=== PATIENT | female | born 1940 | race Caucasian/White ===

== ENCOUNTER 2023-04-13 11:35 | Outpatient (CLI) | payer OTHER, SELFPAY ==
--- NOTE | 2023-04-13 12:44 | ECG_ITS ---
Measurements Intervals [place] Rate: 57 P: 7 ND: 150 QRS: -3 QRSD: 83 T: 37 QT: 405 QTc: 397 Interpretive Statements SINUS BRADYCARDIA LOW QRS VOLTAGE IN PRECORDIAL LEADS BORDERLINE T WAVE ABNORMALITY- ANTERIOR LEADS BASELINE ARTIFACT- I, II, III, AVR, AVL, AVF BORDERLINE ECG NO PREVIOUS ECG AVAILABLE FOR COMPARISON Electronically Signed On 04-13-2023 13:47:40 CDT by Tyler Esposito D.O.
[2023-04-13 13:15] LABS: Mean Corpuscular HGB Conc 32.6 g/dl (32-36); Mean Corpuscular Hemoglobin 29.1 pg (26-34); Mean Corpuscular Volume 89.4 fl (80-100); Mean Platelet Volume 10.3 fl (7.4-10.4); Platelet Count Result 456 k/mm3 (150-375); Red Blood Count 4.81 M/mm3 (4.2-5.4); Red Cell Distribution Width 13.2 % (11.5-14.5); White Blood Count 18.6 K/mm3 (4.5-10.0)
[2023-04-13 13:26] LABS: INR 0.9; Prothrombin Time 12.3 Seconds (11.1-14.7)
[2023-04-13 13:27] LABS: Partial Thromboplastin Time 24.9 SECONDS (22.3-36.8)
[2023-04-13 13:28] LABS: Anion Gap 5 mmol/L (8-16); Blood Urea Nitrogen 26 mg/dL (7-17); Calcium 9.4 mg/dL (8.4-10.2); Carbon Dioxide 30 mmol/L (22-30); Chloride 102 mmol/L (98-107); Estimated Glomerular Filt Rate > 60; Glucose 98 mg/dL (65-110); Potassium 4.3 mmol/L (3.4-5.0); Sodium 137 mmol/L (137-145)
[2023-04-13 13:43] LABS: Appearance Urine Clear (Clear); Bilirubin Urine Negative (Negative); Blood Urine Negative (Negative); Color Urine Yellow (Yellow); Glucose Urine UA Negative (Negative); Ketones Urine Negative (Negative); Leukocyte Esterase Ur 2+ LEU/UL (Negative); Nitrate Urine Negative (Negative); Protein Urine Negative (Negative); Specific Grav Ur 1.022 (1.001-1.035); pH Urine 5.5 (5.0-9.0)
[2023-04-13 14:04] LABS: Add Urine Microscopic? YES
[2023-04-13 14:15] LABS: Mucus Urine Present /lpf; RBC Urine 0-2 /hpf (0-2); Squamous Epithelial Cell Urine Many /hpf (Few); Transitional Epi Cells Urine Many /hpf; WBC Urine 51-100 /hpf (0-3)
[2023-04-13 14:16] LABS: Bacteria Urine 2+ /hpf
== END 2023-04-13 11:36 | disposition home or self-care (01) ==
LOC: ANHSURGERY 11:41
PROVIDERS: PCP Family Medicine; Visit Provider Neurological Surgery
DX: G95.9 Disease of spinal cord, unspecified (principal); I10 Essential (primary) hypertension; Z01.818 Encounter for other preprocedural examination; R94.31 Abnormal electrocardiogram [ECG] [EKG]
CPT/HCPCS: 36415; 80048; 81001; 85027; 85610; 85730; 86850; 86900; 86901; 87086; 93005

== ENCOUNTER 2023-04-19 11:24 | Outpatient (CLI) | payer OTHER, SELFPAY ==
[2023-04-19 12:12] LABS: Basophils Absolute Auto 0.1 K/mm3 (0.0-0.1); Basophils Percent Auto 0.6 % (0.2-1.2); Eosinophils Absolute Auto 0.2 K/mm3 (0-0.3); Eosinophils Percent Auto 1.7 % (0-4.4); Hematocrit 41.7 % (37.0-47.0); Hemoglobin 13.6 g/dL (12.0-15.0); Immature Granulocyte Absolute 0.06 K/mm3 (0.00-0.031); Immature Granulocyte Percent A 0.4 % (0-0.5); Lymphocytes Absolute Auto 3.53 K/mm3 (0.9-3.2); Lymphocytes Percent Auto 24.5 % (18.3-44.2); Mean Corpuscular HGB Conc 32.6 g/dl (32-36); Mean Corpuscular Hemoglobin 28.9 pg (26-34); Mean Corpuscular Volume 88.5 fl (80-100); Mean Platelet Volume 10.6 fl (7.4-10.4); Monocytes Absolute Auto 0.6 K/mm3 (0.1-0.6); Neutrophils Percent Auto 68.8 % (45.5-73.1); Platelet Count Result 392 k/mm3 (150-375); Red Blood Count 4.71 M/mm3 (4.2-5.4); White Blood Count 14.4 K/mm3 (4.5-10.0)
[2023-04-19 12:17] LABS: Appearance Urine Clear (Clear); Bacteria Urine Rare /hpf; Bilirubin Urine Negative (Negative); Blood Urine Negative (Negative); Color Urine Yellow (Yellow); Glucose Urine UA Negative (Negative); Ketones Urine Trace mg/dL (Negative); Leukocyte Esterase Ur 2+ LEU/UL (NEGATIVE); Nitrate Urine Negative (Negative); Non Pathogenic Casts 0-2; Protein Urine Negative (Negative); RBC Urine 0-2 /hpf (0-2); Specific Grav Ur 1.023 (1.001-1.035); Squamous Epithelial Cell Urine Occasional /hpf (Few); pH Urine 5.5 (5.0-9.0)
[2023-04-19 12:32] LABS: Add Urine Microscopic? YES
== END 2023-04-19 11:25 | disposition home or self-care (01) ==
PROVIDERS: PCP Family Medicine; Visit Provider Family Medicine
DX: D72.828 Other elevated white blood cell count (principal); R30.0 Dysuria
CPT/HCPCS: 36415; 81001; 85025; 87040

== ENCOUNTER 2023-05-04 08:57 | Outpatient (CLI) | payer OTHER, SELFPAY ==
[2023-05-04 10:04] LABS: White Blood Count 11.4 K/mm3 (4.5-10.0)
[2023-05-04 10:08] LABS: Appearance Urine Cloudy (Clear); Bacteria Urine 4+ /hpf; Bilirubin Urine Negative (Negative); Blood Urine Negative (Negative); Color Urine Yellow (Yellow); Glucose Urine UA Negative (Negative); Ketones Urine Negative (Negative); Leukocyte Esterase Ur 3+ LEU/UL (Negative); Nitrate Urine Negative (Negative); Non Pathogenic Casts 0-2; Protein Urine Trace mg/dL (Negative); RBC Urine 0-2 /hpf (0-2); Specific Grav Ur 1.021 (1.001-1.035); Squamous Epithelial Cell Urine Moderate /hpf (Few); WBC Urine 51-100 /hpf; pH Urine 5.5 (5.0-9.0)
[2023-05-04 10:22] LABS: Add Urine Microscopic? YES
== END 2023-05-04 08:58 | disposition home or self-care (01) ==
PROVIDERS: PCP Family Medicine; Visit Provider Neurological Surgery
DX: Z01.818 Encounter for other preprocedural examination (principal); G95.9 Disease of spinal cord, unspecified
CPT/HCPCS: 36415; 81001; 85048; 86850; 86900; 86901; 87086

== ENCOUNTER 2023-05-17 11:02 | Inpatient (IN) | payer OTHER, SELFPAY ==
--- NOTE | 2023-04-13 11:36 | PC.NURSE ---
PRE-OP INSTRUCTIONS, PLEASE READ CAREFULLY Report to the Outpatient Waiting Room, entrance under the green pavilion located off [facility], at time _0600_ on date _04/19/23_. Planned Procedure Time: _0730_. PACK A SMALL OVERNIGHT BAG AND LEAVE IN THE CAR Time changes happen often and if your time is changed the preop area will call you the afternoon before. - You and your visitor will be asked to self-screen and do not enter if you have any COVID symptoms. - A mask is optional within the hospital at this time. -VISITING HOURS 8AM-8PM Patients may have clear liquids (water, carbonated beverages, clear teas, apple juice) until 3 hours prior to surgery (0430 AM) with a maximum of 20 ounces. - No food from midnight until time of surgery Take the following medications with a SIP of water the morning of surgery: _NONE_ DO NOT STOP ANY OF YOUR OTHER PRESCRIPTION MEDICATIONS PRIOR TO SURGERY ?EXCEPT THE FOLLOWING Medications to discontinue - _NONE_, Date to take last dose Please no make-up, nail swiss, hairspray, perfume, deodorant, or body powder the day of surgery. No jewelry (including any body piercings) or valuables the day of surgery, leave them at home. Please take a shower or bath the night before, or the morning of, surgery with an antibacterial soap. Wear comfortable, loose fitting clothing. - Jewelry must be removed prior to entering the operating room. Rings and piercings that are not removed may be cut off. - The hospital will not accept responsibility for valuables. - Please leave all valuables, including medications, at home the day of surgery. If you are going home after surgery, a licensed motor coach driver must drive you home. - NO public transportation without another adult if you receive anesthesia. - We recommend that an adult stay with you for 24 hours following discharge. - We also recommend that you do not drive, make important decision, drink alcoholic beverages, or take any drugs that were not prescribed by your health care provider for at least 24 hours after your discharge time. Follow any additional instructions given to you from your surgeon. If you or anyone in your household have experienced Covid symptoms in the past week, please notify your surgeon or the nurse liaison at the phone number below for possible testing. Instructions given to _PATIENT & CAREGIVER (MOE)_and asked if any additional questions and then verbalized understanding. Patient advised to call surgeon office or pre surgery nurse liaison [phone] if any additional questions.
[2023-04-13 12:01] VITALS: BP 138/46; PULSE 62; RESP 18; TEMP 36.8; O2SAT 95; BMI 26.4
--- NOTE | 2023-05-02 09:15 | PC.NURSE ---
PRE-OP INSTRUCTIONS, PLEASE READ CAREFULLY Report to the Outpatient Waiting Room, entrance under the green pavilion located off [facility], at time _0600_ on date _05/10/23_. Planned Procedure Time _0730_. Time changes happen often and if your time is changed the preop area will call you the afternoon before. - You and your visitor will be asked to self-screen and do not enter if you have any COVID symptoms. - A mask is optional within the hospital at this time. -VISITING HOURS 8AM-8PM Patients may have clear liquids (water, carbonated beverages, clear teas, apple juice) until 3 hours prior to surgery (0430 AM) with a maximum of 20 ounces. - No food from midnight until time of surgery Take the following medications with a SIP of water the morning of surgery: _NONE_ DO NOT STOP ANY OF YOUR OTHER PRESCRIPTION MEDICATIONS PRIOR TO SURGERY ?EXCEPT THE FOLLOWING Medications to discontinue per physician __NONE____, Date to take last dose Please no make-up, nail bengali, hairspray, perfume, deodorant, or body powder the day of surgery. No jewelry (including any body piercings) or valuables the day of surgery, leave them at home. Please take a shower or bath the night before, or the morning of, surgery with an antibacterial soap. Wear comfortable, loose fitting clothing. - Jewelry must be removed prior to entering the operating room. Rings and piercings that are not removed may be cut off. - The hospital will not accept responsibility for valuables. - Please leave all valuables, including medications, at home the day of surgery. If you are going home after surgery, a licensed charter bus driver must drive you home. - NO public transportation without another adult if you receive anesthesia. - We recommend that an adult stay with you for 24 hours following discharge. - We also recommend that you do not drive, make important decision, drink alcoholic beverages, or take any drugs that were not prescribed by your health care provider for at least 24 hours after your discharge time. Follow any additional instructions given to you from your surgeon. If you or anyone in your household have experienced Covid symptoms in the past week, please notify your surgeon or the nurse liaison at the phone number below for possible testing. Telephone instructions given to _PT'S FRIEND MOE VALENZUELA_and asked if any additional questions and then verbalized understanding. Patient advised to call surgeon office or pre surgery nurse liaison [phone] if any additional questions.
--- NOTE | 2023-05-11 08:14 | PC.NURSE ---
Report to the Outpatient Waiting Room, entrance under the green pavilion located off [facility], at time __0600 on date __05/17/23 . Planned Procedure Time: ___729 . Time changes happen often and if your time is changed the preop area will call you the afternoon before. - You and your visitor will be asked to self-screen and do not enter if you have any COVID symptoms. - A mask is optional within the hospital at this time. Patients may have clear liquids (water, carbonated beverages, clear teas, apple juice) until 3 hours prior to surgery (0430 AM) with a maximum of 20 ounces. - No food from midnight until time of surgery - Infants may have breast milk until 4 hours before surgery, formula 6 hours prior to surgery. - Children will be allowed to drink immediately following surgery. If applicable, please bring a bottle or sippy cup to assist with drinking. Juice, water, soda, and popsicles are readily available. For infants on formula, please bring formula the day of surgery. Pacifiers are allowed. Take the following medications with a SIP of water the morning of surgery: NONE DO NOT STOP ANY OF YOUR OTHER PRESCRIPTION MEDICATIONS PRIOR TO SURGERY ?EXCEPT THE FOLLOWING Medications to discontinue per physician NONE Date to take last dose Please no make-up, nail welsh, hairspray, perfume, deodorant, or body powder the day of surgery. No jewelry (including any body piercings) or valuables the day of surgery, leave them at home. Please take a shower or bath the night before, or the morning of, surgery with an antibacterial soap. Wear comfortable, loose fitting clothing. Children are encouraged to wear pajamas. - Jewelry must be removed prior to entering the operating room. Rings and piercings that are not removed may be cut off. - The hospital will not accept responsibility for valuables. - Please leave all valuables, including medications, at home the day of surgery. If you are going home after surgery, a licensed oil transport driver must drive you home. - NO public transportation without another adult if you receive anesthesia. - We recommend that an adult stay with you for 24 hours following discharge. - We also recommend that you do not drive, make important decision, drink alcoholic beverages, or take any drugs that were not prescribed by your health care provider for at least 24 hours after your discharge time. For Pediatric surgeries, we recommend two adults accompany the child home. Follow any additional instructions given to you from your surgeon. If you or anyone in your household have experienced Covid symptoms in the past week, please notify your surgeon or the nurse liaison at the phone number below for possible testing. Telephone instructions given to _PT'S FRIEND MOE NORIEGAFamilia_and asked if any additional questions and then verbalized understanding. Patient advised to call surgeon office or pre surgery nurse liaison [phone] if any additional questions.
[2023-05-17] VITALS (15 sets, daily range): BP systolic 137–171; BP diastolic 41–78; PULSE 72–101; RESP 12–20; TEMP 36.6–36.8; O2SAT 93–100
--- NOTE | ~2023-05-17 | XR_ITS ---
EXAMINATION: XR fluoroscopy no charge DATE: 05/17/2023 10:12 INDICATION: Cervical decompression and C5-C7 spinal fusion TECHNIQUE: 2 fluoroscopic images of the cervical spine were obtained in the frontal and lateral proje ctions during procedure performed by Dr. Bravo. Radiologist was not present for the imaging or proc edure. The amount of fluoroscopy time used during this procedure was 0.2 minutes. COMPARISON: None. FINDINGS: C3, C4 and C5 laminectomies. Instrumented posterior spinal fusion with bilateral vertical osman and lat eral mass screw fixation at C3-C7. There is some expected lucent gas in the soft tissues at the opera tive bed. Endotracheal tube in expected position extending down the caudal margin of the [id number] at the thoracic inlet. IMPRESSION: 1. Fluoroscopy utilized during cervical posterior decompression and instrumented C3-C7 posterior spin al fusion. Reviewed, dictated and finalized at location A. IMPRESSION: 1. Fluoroscopy utilized during cervical posterior decompression and instrumente d C3-C7 posterior spinal fusion.
--- NOTE | 2023-05-17 07:02 | WPDANESEPPF ---
Anes - Initial Pre Proc Eval Procedure: Operation Date: 05/17/23 07:30 Proposed Procedures p Posterior Cervical Decompression and Fusion of C 3-7 - Theresa Bravo MD Date/Time: 05/17/23 07:02 Surgeon: Theresa Bravo MD Pre Op Diagnosis: cervical myelopathy Patient Data Age: 83 Gender: F Height: 1.61 m Weight: 68.7 kg Last Vital Signs Temp 36.8 C 04/13/23 12:01 Pulse 62 04/13/23 12:01 Resp 18 04/13/23 12:01 BP 138/46 L 04/13/23 12:01 Pulse Ox 95 04/13/23 12:01 O2 Del Method Room Air 04/13/23 12:01 Allergies Allergy/AdvReac Type Severity Reaction Status Date / Time No Known Allergies Allergy Unverified 04/13/23 12:04 Home Medications Medication Instructions Recorded Confirmed Type lisinopril 20 mg tablet 20 mg PO DAILY 03/30/23 04/13/23 History rosuvastatin 20 mg tablet 20 mg PO DAILY 03/30/23 04/13/23 History gabapentin 100 mg capsule 100 mg PO HS 04/13/23 04/13/23 History Patient hx anesthesia problems: none Family hx anesthesia problems: none Results Review: All pre-operative results and documents have been reviewed as part of the pre-operative evaluation. [facility] Past Medical History Medical History Anxiety Arthritis Hypertension Family History Family History (Updated 03/30/23 @ 10:44 by Antoinette Dozier MA) Father Hypertension Depression Cerebrovascular accident Sibling Hypertension Cerebrovascular accident Social History Social History Social History: Resources given to Staci for social determinants. Staci is very confident filling out medical forms. She is a white female. The date of her last physical exam was early 2022. She does not have an Advance Directive or Living Will. She denies being , but is sexually active. She does not experience menopausal symptoms. She does perform self breast exams. She denies having Flu Vaccine. She denies having Tetanus Vaccine. She denies having Pneumonia Vaccine. She has not had a Dexa scan. She has had an adults over 20 cholesterol test. She denies having an adults over 50 colonoscopy. She denies ever having a blood transfusion. She denies currently using recreational or street drugs. She denies ever giving herself street drugs with a needle. She reports eating a healthy diet and exercising regularly. She is over the age of 65 and reports frequent falls. She denies fearing for her safety or having a history of abuse. Her caffeine intake consists of 1 cup of coffee, cola, and tea per day. Smoking status: Never smoker Second hand tobacco smoke exposure: No Alcohol intake: current Alcohol use details: Occasionally drinks wine Substance use: never Substance use type: does not use Lack of Transportation: No Lack of Food: Sometimes True Current Housing: I Have Housing Concerned About Future Housing: Decline to Answer Difficulty Paying Gas/Electric Bills: YES Difficulty Paying for Meds: No Currently Unemployed: No Education: High School Diploma/GED Difficulty w/ Childcare or Family Care: No Living arrangements: alone Occupation/Education: retired Spiritual care concerns: No Agree to blood products: Yes Anes - Eval Final PreProcedure Day of Procedure 05/17/23 07:02 Patient weight: normal Heart: regular rate and rhythm Lungs: clear to auscultation Airway: Mallampati scale class III Neurological: other (alert hard of hearing) Last oral intake: >/= 8 hours ASA classification: III Emergent: no Anesthetic plan: proceed Anesthesia type and monitoring: general ETT and standard monitoring Results Review: All pre-operative results and documents have been reviewed as part of the pre-operative evaluation. surgeon aware of persistent leukocytosis desires to proceed. concern for MDS, leukemia, lymphoma with noted 18K+ white count. desires to proceed.
--- NOTE | 2023-05-17 07:11 | WPDHPUPDATE1 ---
History and Physical Update Update Date/Time: 05/17/23 07:11 History and Physical has been reviewed, including an updated exam of the patient. There are NO changes in the patient's condition. Risks, benefits, and alternatives have been discussed and questions answered. Patient agrees to proceed with procedure.
--- NOTE | 2023-05-17 07:11 | PM.IMHP ---
H&P: HPI History of Present Illness Date/Time: 05/17/23 07:11 Chief Complaint: cervical myelopathy Narrative: Ms. Jordan is an 83-year-old female with history of hypertension and hyperlipidemia who was urgently referred by [facility] for evaluation of cervical myelopathy.? For the last 3 years, patient has had progressive pain starting in her neck radiating bilaterally into her arms and hands.? She has numbness in both extremities, particularly in her hands.? 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 She has also had increasing difficulty with balance.? She reports being wobbly when she walks.? She is now using a cane for stability and uses a wheelchair for longer distances.? She feels numbness in her legs, worse on the left side.? Her symptoms have progressed particularly since October.? She had a course of physical therapy which was not helpful for her.? She saw [facility] for evaluation of epidural steroid injections in her lumbar spine due to lumbar stenosis.? They recognized that she was myelopathic and sent her here. She currently lives alone but is assisted by a neighbor who has accompanied her to clinic today.? She is otherwise healthy and does not take any blood thinners.? She does not smoke. [facility] Past Medical History Medical History Anxiety Arthritis Hypertension Family History Family History (Updated 03/30/23 @ 10:44 by Antoinette Dozier MA) Father Hypertension Depression Cerebrovascular accident Sibling Hypertension Cerebrovascular accident Social History Social History Social History: Resources given to Staci for social determinants. Staci is very confident filling out medical forms. She is a white female. The date of her last physical exam was early 2022. She does not have an Advance Directive or Living Will. She denies being , but is sexually active. She does not experience menopausal symptoms. She does perform self breast exams. She denies having Flu Vaccine. She denies having Tetanus Vaccine. She denies having Pneumonia Vaccine. She has not had a Dexa scan. She has had an adults over 20 cholesterol test. She denies having an adults over 50 colonoscopy. She denies ever having a blood transfusion. She denies currently using recreational or street drugs. She denies ever giving herself street drugs with a needle. She reports eating a healthy diet and exercising regularly. She is over the age of 65 and reports frequent falls. She denies fearing for her safety or having a history of abuse. Her caffeine intake consists of 1 cup of coffee, cola, and tea per day. Smoking status: Never smoker Second hand tobacco smoke exposure: No Alcohol intake: current Alcohol use details: Occasionally drinks wine Substance use: never Substance use type: does not use Lack of Transportation: No Lack of Food: Sometimes True Current Housing: I Have Housing Concerned About Future Housing: Decline to Answer Difficulty Paying Gas/Electric Bills: YES Difficulty Paying for Meds: No Currently Unemployed: No Education: High School Diploma/GED Difficulty w/ Childcare or Family Care: No Living arrangements: alone Occupation/Education: retired Spiritual care concerns: No Agree to blood products: Yes Meds Home Medications and Allergies Home Medications Medication Instructions Recorded Confirmed Type lisinopril 20 mg tablet 20 mg PO DAILY 03/30/23 04/13/23 History rosuvastatin 20 mg tablet 20 mg PO DAILY 03/30/23 04/13/23 History gabapentin 100 mg capsule 100 mg PO HS 04/13/23 04/13/23 History Allergies Allergy/AdvReac Type Severity Reaction Status Date / Time No Known Allergies Allergy Unverified 04/13/23 12:04 Exam Narrative: Positive Rm's on right Hand 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
[2023-05-17] MEDS: ceFAZolin 2 GM/D5W 50 ML 2 GM/50 ML BAG IVPB ×2 (07:42→11:44)
[2023-05-17] MEDS: BUPIVACAINE/EPINEPHRINE 0.25% 50 ML VIAL 20 ML INFILTRATE (09:00)
--- NOTE | 2023-05-17 10:52 | PM.OP ---
Procedure Note - Brief Procedure Note - Brief Date of procedure: 05/17/23 cervical myelopathy Post-op diagnosis: Same Procedure performed: Posterior cervical laminectomies C3-6, posterior cervical arthrodesis C3-7 Surgeon: Theresa Bravo MD Anesthesia: GETA Findings: Successful decompression C3-6. A very small amount of the superior portion of C7 lamina was removed to ensure the PLL was fully removed at C6-7. C3-7 lateral mass instrumentation with arthrodesis Estimated blood loss (mL): 100 Drains: Yes Packing: No Pathology: None sent Complications: None Condition: Stable Disposition: PACU
[2023-05-17] MEDS: LACTATED RINGERS 1,000 ML 30 ML IV CONT ×2 (10:56)
[2023-05-17] MEDS: fentaNYL CITRATE INJ (*CRX) 100 MCG/2 ML VIAL 25 MCG IV PUSH ×4 (11:14→11:52)
--- NOTE | 2023-05-17 12:15 | ADMGEN ---
This patient, Janee Jordan, was admitted to Medical Room 257-01. Patient/family oriented to hospital policies and general routines including ID bracelet, bed and alarms, visiting hours, pain management, procedures, bathroom and other care routines, personal items, smoking policy, room service/diet, and visiting hours. Information on how to activate the Rapid Response Team has been discussed. Patient/Family are encouraged to report perceived risks to care and to ask questions if they do not understand what they are told or what they should do.
[2023-05-17] MEDS: ACETAMINOPHEN 500 MG TABLET 1000 MG PO ×2 (12:40→17:19)
[2023-05-17] MEDS: oxyCODONE HCL (*CRX) 5 MG TAB IR 10 MG PO ×3 (12:40→22:16)
[2023-05-17] MEDS: SODIUM CHLORIDE 0.9% IV 1,000 ML 100 ML IV CONT (12:41)
--- NOTE | 2023-05-17 14:02 | PCPTNOTE ---
Attempted PT evaluation, per RN pt is rest comfortably at this time and to check back later. Will Follow.
--- NOTE | 2023-05-17 14:40 | PCPTNOTE ---
Attempted PT evaluation, pt refused due to pain. Pt adamant about not participating in skilled therapy this date.
[2023-05-17] MEDS: MORPHINE SULFATE (*CRX) 2 MG/ML INJ IV PUSH ×2 (15:06→20:23)
[2023-05-17] MEDS: CYCLOBENZAPRINE HCL 10 MG TABLET PO (15:07)
--- NOTE | 2023-05-17 15:10 | PCOTNOTE ---
Attempted to see pt. for occupational therapy evaluation. Pt. declines to participate at this time due to pain. Nursing aware. Following
--- NOTE | 2023-05-17 17:41 | W.PM.PROC2 ---
Procedure Note - Detailed Date of Procedure 05/17/23 Pre-op Diagnosis 1. Cervical myelopathy 2. Cervical spinal stenosis Post-op Diagnosis Same Procedure Performed 1. C3, C4, C5, and C6 laminectomies 2. Lateral mass instrumentation at C3, C4, C5, C6, and C7 3. Arthrodesis with autograft and allograft at C3-4, C4-5, C5-6, and C6-7 4. Use of C-arm for fluoroscopy Surgeon Theresa Bravo MD Metal Storage Worker RADHA Shabazz Anesthesia General and Local Indications Ms. Jordan is an 83-year-old female who presents with 3 years of progressive neck pain radiating into both arms, numbness throughout the arms and hands, hand weakness, balance issues,? numbness in her legs, and difficulty walking.? She was found to be subjectively and objectively myelopathic with weakness particularly in her hands, worse on the left side.? MRI cervical spine shows profound stenosis at C3-4 with cord signal change at this level.? There is also severe stenosis at C 4-5 and C5-6.? I recommended surgical intervention in the form of posterior cervical decompression and fusion C3-C7.?? Description of Procedure The patient was brought to the operating room where endotracheal anesthesia was induced. The Valerio headholder was applied, and the patient was transferred to the operating table in the prone position. The head was secured to the bed. All pressure points were padded. The C-arm was used to evaluate the planned incision. The planned surgical site was prepped and draped in usual sterile fashion. Time out was conducted, and local anesthesia was injected. A 10-blade scalpel was used to make the incision. The subcutaneous tissue was dissected with the bovie until the spinous processes were encountered. Self-retaining retractors were placed. A clamp was placed on a spinous process which was confirmed to be the C3 level with the C-arm. The incision was extended inferiorly to better expose down to the inferior level. The muscles were elevated in a subperiosteal fashion to expose the laminae and lateral masses of C3 through C6 bilaterally. The facet joints were exposed and defined with the bovie, and the spray pilot holes for the lateral mass screws were created with the high -seed drill. On the right side, the hand drill was used to drill through the lateral mass to a depth of 12mm at C3. The trajectory was palpated with a ball-tip probe to ensure where were no breaches in the bone. The drill was then lengthened to 14mm. The 3.0mm tap was then passes. This was repeated at C4, C5, C6, and C7. At C4 on the right, a breach was noted after drilling to 14m. Bone wax was placed over the screw holes. This was then repeated on the left side at C3, C4, C5, C6, and C7. No bone breaches were noted at the depth of 14mm. We then turned our attention to the laminectomies. The high-speed drill was used to create a trough through the laminae of C3, C4, C5, and C6. The posterior elements were elevated with a Leksell and Kerrison rongeurs, and the bone was passed off to be morselized for autograft. The ligamentum flavum was elevated with the bone. Small residual pieces of ligamentum and bone were removed with the kerrison. The facet joints were decorticated with the drill. We ensured hemostasis with the bipolar and Floseal. We next turned our attention to the lateral mass screws. The screw trajectories were palpated again with the balltip probe. 14 x 33.5mm screws were placed at each level bilaterally with exception of the right C4 lateral mass where a 12mm screw was placed. 70mm rods were placed followed by set screws which were final tightened. The area was copiously irrigated. Autograft mixed with i-Factor was placed lateral to the screws bilaterally and into the facets. A hemovac drain was placed in the epidural space and tunneled inferiorly. The muscle was approximated with 0 vicryl. The fascia was closed with 0 vicryl as well. The dermis was closed with 2-0 and 3-0 vicryl. The skin was closed with running 3-0 nylon. The drain
[2023-05-17] MEDS: GABAPENTIN 100 MG CAPSULE PO (20:36)
[2023-05-17] MEDS: DOCUSATE SODIUM 100 MG CAPSULE PO (20:36)
[2023-05-17] MEDS: ceFAZolin 1 GM/NS 50 ML 1 GM/50 ML BAG IVPB (22:50)
[2023-05-18] VITALS (9 sets, daily range): BP systolic 136–167; BP diastolic 45–82; PULSE 60–82; RESP 16–18; TEMP 36.4–36.6; O2SAT 93–99
[2023-05-18] MEDS: ACETAMINOPHEN 500 MG TABLET 1000 MG PO ×5 (00:43→23:43)
[2023-05-18] MEDS: MORPHINE SULFATE (*CRX) 2 MG/ML INJ IV PUSH ×2 (00:43→07:29)
[2023-05-18] MEDS: SODIUM CHLORIDE 0.9% IV 1,000 ML 30 ML IV CONT (01:58)
--- NOTE | 2023-05-18 02:01 | PC.NURSE ---
New bag of maintenance fluids set to run at 30 mL/hr per order in MAR that states if pt tolerating oral intake rate can be decreased to KVO rate.
[2023-05-18] MEDS: oxyCODONE HCL (*CRX) 5 MG TAB IR 10 MG PO ×4 (03:54→20:19)
[2023-05-18] MEDS: ceFAZolin 1 GM/NS 50 ML 1 GM/50 ML BAG IVPB ×3 (05:28→21:58)
[2023-05-18] MEDS: DOCUSATE SODIUM 100 MG CAPSULE PO ×2 (07:26→20:19)
[2023-05-18] MEDS: CYCLOBENZAPRINE HCL 10 MG TABLET PO ×2 (07:26→15:31)
[2023-05-18] MEDS: lisinopriL 20 MG TABLET PO (07:26)
[2023-05-18] MEDS: ROSUVASTATIN 10 MG TABLET 20 MG PO (07:28)
--- NOTE | 2023-05-18 11:20 | WPDANESPN ---
Anes - Prog Note Post-Op Date/Time: 05/18/23 11:20 Cardiovascular status: normal Respiratory status: normal Airway patency: baseline Mental status: baseline Post-Op hydration status: normal Vital Signs: Last Vital Signs Temp 97.6 F 05/18/23 10:53 Pulse 80 05/18/23 10:53 Resp 16 05/18/23 10:53 BP 143/52 H 05/18/23 10:53 Pulse Ox 96 05/18/23 10:53 O2 Del Method Room Air 05/18/23 10:42 O2 Flow Rate 2 05/18/23 08:00 Pain Score (VAS): 3 I/O: Intake & Output 05/17/23 05/18/23 05/18/23 23:59 07:59 15:59 Intake Total 1290 300 240 Output Total 400 20 Balance 890 280 240 Post-procedural complaints: nausea Patient Feedback: Patient satisfied with anesthetic care.
--- NOTE | 2023-05-18 17:45 | WPDNEUROSGPN ---
Progress Note: A&P Assessment and Plan (1) Cervical myelopathy: Code(s): G95.9 - Disease of spinal cord, unspecified Status: Acute (2) Status post cervical arthrodesis: Code(s): Z98.1 - Arthrodesis status Status: Acute Plan Ms. Jordan is an 83-year-old female with history of cervical myelopathy who underwent C3-6 decompression, C3-7 arthrodesis on 05/17. Her pain is better controlled today. She seems to have improved strength and sensation in her arms. I have reassured her that her recovery is going well and that the pain she is experiencing is unfortunately an expected part of this procedure but that it will improve fairly quickly. I have encouraged her to work with therapy. It sounds like they are in fact recommending some rehab. I will stop the IV morphine and will likely decrease the frequency of her narcotics tomorrow. I will also start DVT ppx tomorrow. Subjective Date/time seen: 05/18/23 17:45 Interval history: Ms. Jordan is feeling more comfortable today compared to yesterday in terms of neck pain. Currently no pain with lying still in bed. She thinks her hands feel stronger and have more sensation compared to before surgery. She ambulated with physical therapy. She is having some urinary retention that may require straight cath this evening. Review of Systems Review of Systems: All systems reviewed & are unremarkable except as noted in HPI and below Exam Narrative: Mildly confused but is answering questions appropriately Hand external auditor are nearly full strength Intrinsics 3/5 bilaterally, although she was having difficulty understanding the command Arms and legs otherwise full strength Sensation intact to light touch Incision dressing dry Objective Data Vital Signs Vital Signs: Vital Signs - 24 hr 05/17/23 18:10 05/17/23 22:01 05/17/23 20:25 Temperature 98 F 98.0 F Pulse Rate 73 91 Respiratory Rate 16 18 Blood Pressure 157/60 H 155/70 H Pulse Oximetry 99 98 98 Oxygen Delivery Nasal Cannula Oxygen Flow Rate 2 05/18/23 02:01 05/18/23 06:01 05/18/23 08:00 Temperature 97.8 F 97.7 F Pulse Rate 60 71 Respiratory Rate 17 17 Blood Pressure 167/64 H 141/50 H Pulse Oximetry 98 98 98 Oxygen Delivery Nasal Cannula Oxygen Flow Rate 2 05/18/23 09:57 05/18/23 10:42 05/18/23 10:53 Temperature 97.6 F Pulse Rate 80 Respiratory Rate 16 Blood Pressure 143/52 H Pulse Oximetry 93 96 Oxygen Delivery Room Air Room Air Oxygen Flow Rate 05/18/23 14:02 Temperature 97.6 F Pulse Rate 82 Respiratory Rate 16 Blood Pressure 137/62 Pulse Oximetry 97 Oxygen Delivery Oxygen Flow Rate Intake/Output Intake/Output: Intake & Output 05/15/23 05/16/23 05/17/23 05/18/23 23:59 23:59 23:59 23:59 Intake Total 1840 830 Output Total 400 20 Balance 1440 810 Meds/Results Medications: Active Medications Generic Name Dose Route Start Last Admin Trade Name Freq PRN Reason Stop Dose Admin Acetaminophen 1,000 mg 05/17/23 12:30 05/18/23 12:12 Acetaminophen 500 Mg Tablet PO 1,000 mg Q6HR NAVDEEP Administration Al Hydrox/Mg Hydrox/Simethicone 20 ml 05/17/23 11:02 Mag Hydrox/Al Hydrox/Simeth 30 Ml Udc PO Q4H PRN Indigestion/Heartburn Bisacodyl 10 mg 05/17/23 11:02 Bisacodyl 10 Mg Suppository RECTAL DAILY PRN Constipation Cyclobenzaprine HCl 10 mg 05/17/23 11:02 05/18/23 15:31 Cyclobenzaprine Hcl 10 Mg Tablet PO 10 mg TID PRN Administration Muscle Spasms Docusate Sodium 100 mg 05/17/23 21:00 05/18/23 07:26 Docusate Sodium 100 Mg Capsule PO 100 mg Q12HR NAVDEEP Administration Gabapentin 100 mg 05/17/23 21:00 05/17/23 20:36 Gabapentin 100 Mg Capsule PO 100 mg HS NAVDEEP Administration Sodium Chloride 1,000 mls @ 100 mls/hr 05/17/23 11:05 05/18/23 01:58 Normal Saline Iv IV CONT 30 mls/hr .Q10H NAVDEEP Administration Cefazolin Sodium 1 gm in 50 mls @ 100 mls/hr 05/17/23 22:25
[2023-05-18] MEDS: GABAPENTIN 100 MG CAPSULE PO (20:19)
[2023-05-19 05:09] LABS: Estimated CRCL calculation 35 ml/min; Estimated Glomerular Filt Rate 60
[2023-05-19] MEDS: ceFAZolin 1 GM/NS 50 ML 1 GM/50 ML BAG IVPB ×3 (06:12→21:52)
[2023-05-19] MEDS: ACETAMINOPHEN 500 MG TABLET 1000 MG PO ×3 (06:12→17:15)
[2023-05-19 06:39] VITALS: BP 132/43; PULSE 96; RESP 16; TEMP 36.6; O2SAT 91
[2023-05-19 08:00] VITALS: O2SAT 93
--- NOTE | 2023-05-19 08:14 | PCPTNOTE ---
Attempted to see patient for PT, however patient was eating breakfast.
[2023-05-19] MEDS: DOCUSATE SODIUM 100 MG CAPSULE PO ×2 (08:20→20:11)
[2023-05-19] MEDS: CYCLOBENZAPRINE HCL 10 MG TABLET PO (08:20)
[2023-05-19] MEDS: ROSUVASTATIN 10 MG TABLET 20 MG PO (08:20)
[2023-05-19] MEDS: lisinopriL 20 MG TABLET PO (08:20)
[2023-05-19] MEDS: ENOXAPARIN 30 MG/0.3 ML SYRINGE SUB-Q (08:20)
[2023-05-19] MEDS: oxyCODONE HCL (*CRX) 5 MG TAB IR 10 MG PO (09:15)
--- NOTE | 2023-05-19 09:45 | WPDNEUROSGPN ---
Progress Note: A&P Assessment and Plan (1) Status post cervical arthrodesis: Code(s): Z98.1 - Arthrodesis status Status: Acute (2) Spondylolisthesis, cervical region: Code(s): M43.12 - Spondylolisthesis, cervical region Status: Acute (3) Cervical stenosis of spinal canal: Code(s): M48.02 - Spinal stenosis, cervical region Status: Acute (4) Cervical myelopathy: Code(s): G95.9 - Disease of spinal cord, unspecified Status: Acute Plan Ms. Jordan is an 83-year-old female with history of cervical myelopathy who underwent posterior cervical laminectomies C3-6 and posterior cervical arthrodesis C3-7 on May 17. She is overall doing well with improved pain control. She is mobilizing with therapy who is currently recommending SNF placement. Plan: -Start DVT ppx today -Patient may shower today and get incision wet with soap and water -She may wear the cervical collar when ambulating -Ready for discharge to SNF when accepted Subjective Date/time seen: 05/19/23 09:45 Interval history: She reports doing very well overnight. Some soreness in her neck but no significant pain this morning. 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, slightly weaker on left Otherwise full strength Sensation intact to light touch Incision c/d/i with sutures intact Objective Data Vital Signs Vital Signs: Vital Signs - 24 hr 05/18/23 09:57 05/18/23 10:42 05/18/23 10:53 Temperature 97.6 F Pulse Rate 80 Respiratory Rate 16 Blood Pressure 143/52 H Pulse Oximetry 93 96 Oxygen Delivery Room Air Room Air 05/18/23 14:02 05/18/23 18:25 05/18/23 20:19 Temperature 97.6 F 98 F 97.8 F Pulse Rate 82 74 78 Respiratory Rate 16 18 16 Blood Pressure 137/62 147/82 H 136/45 L Pulse Oximetry 97 99 95 Oxygen Delivery 05/18/23 20:00 05/19/23 06:39 05/19/23 08:00 Temperature 97.8 F Pulse Rate 78 96 Respiratory Rate 16 16 Blood Pressure 132/43 L Pulse Oximetry 95 91 93 Oxygen Delivery Room Air Room Air Intake/Output Intake/Output: Intake & Output 05/16/23 05/17/23 05/18/23 05/19/23 23:59 23:59 23:59 23:59 Intake Total 1840 1570 440 Output Total 400 120 500 Balance 1440 1450 -60 Meds/Results Medications: Active Medications Generic Name Dose Route Start Last Admin Trade Name Freq PRN Reason Stop Dose Admin Acetaminophen 1,000 mg 05/17/23 12:30 05/19/23 06:12 Acetaminophen 500 Mg Tablet PO 1,000 mg Q6HR NAVDEEP Administration Al Hydrox/Mg Hydrox/Simethicone 20 ml 05/17/23 11:02 Mag Hydrox/Al Hydrox/Simeth 30 Ml Udc PO Q4H PRN Indigestion/Heartburn Bisacodyl 10 mg 05/17/23 11:02 Bisacodyl 10 Mg Suppository RECTAL DAILY PRN Constipation Cyclobenzaprine HCl 10 mg 05/17/23 11:02 05/19/23 08:20 Cyclobenzaprine Hcl 10 Mg Tablet PO 10 mg TID PRN Administration Muscle Spasms Docusate Sodium 100 mg 05/17/23 21:00 05/19/23 08:20 Docusate Sodium 100 Mg Capsule PO 100 mg Q12HR NAVDEEP Administration Enoxaparin Sodium 30 mg 05/19/23 09:00 05/19/23 08:20 Enoxaparin 30 Mg/0.3 Ml Syringe SUB-Q 30 mg DAILY NAVDEEP Administration Gabapentin 100 mg 05/17/23 21:00 05/18/23 20:19 Gabapentin 100 Mg Capsule PO 100 mg HS NAVDEEP Administration Sodium Chloride 1,000 mls @ 100 mls/hr 05/17/23 11:05 05/18/23 01:58 Normal Saline Iv IV CONT 30 mls/hr .Q10H NAVDEEP Administration Cefazolin Sodium 1 gm in 50 mls @ 100 mls/hr 05/17/23 22:25 05/19/23 06:48 Ancef 1 Gm/Ns 50 Ml IVPB Infused Q8HR NAVDEEP Infusion Lisinopril 20 mg 05/18/23 09:00 05/19/23 08:20 Lisinopril 20 Mg Tablet PO 20 mg DAILY NAVDEEP Administration Ondansetron HCl 4 mg 05/17/23 11:02 Ondansetron Inj 4 Mg/2 Ml Vial IV PUSH Q8H PRN Nausea And
[2023-05-19] MEDS: SODIUM CHLORIDE 0.9% IV 1,000 ML 30 ML IV CONT (13:55)
[2023-05-19 14:55] VITALS: BP 124/45; PULSE 87; RESP 18; TEMP 36.8; O2SAT 90
[2023-05-19 20:00] VITALS: PULSE 87; RESP 18; O2SAT 90
[2023-05-19] MEDS: oxyCODONE HCL (*CRX) 5 MG TAB IR PO (20:11)
[2023-05-19] MEDS: GABAPENTIN 100 MG CAPSULE PO (20:11)
[2023-05-19] MEDS: ONDANSETRON INJ 4 MG/2 ML VIAL IV PUSH (22:54)
[2023-05-19 23:03] VITALS: BP 134/46; PULSE 86; RESP 16; TEMP 36.7; O2SAT 95
[2023-05-20] MEDS: ceFAZolin 1 GM/NS 50 ML 1 GM/50 ML BAG IVPB (05:58)
[2023-05-20 07:00] VITALS: BP 142/55; PULSE 94; RESP 16; TEMP 36.4; O2SAT 93
[2023-05-20] MEDS: DOCUSATE SODIUM 100 MG CAPSULE PO (08:01)
[2023-05-20] MEDS: ENOXAPARIN 30 MG/0.3 ML SYRINGE SUB-Q (08:01)
[2023-05-20 08:02] VITALS: RESP 16; O2SAT 94
[2023-05-20] MEDS: ROSUVASTATIN 10 MG TABLET 20 MG PO (08:02)
[2023-05-20] MEDS: lisinopriL 20 MG TABLET PO (08:02)
--- NOTE | 2023-05-20 08:48 | PM.DS ---
DS: Admitting Diagnosis Discharge Date May 20, 2023 Admitting Diagnosis Cervical myelopathy Cervica stenosis DS: Discharge Diagnosis Discharge Diagnosis (1) Status post cervical arthrodesis: Code(s): Z98.1 - Arthrodesis status Status: Acute (2) Spondylolisthesis, cervical region: Code(s): M43.12 - Spondylolisthesis, cervical region Status: Acute (3) Cervical stenosis of spinal canal: Code(s): M48.02 - Spinal stenosis, cervical region Status: Acute (4) Cervical myelopathy: Code(s): G95.9 - Disease of spinal cord, unspecified Status: Acute Plan s/p cervical laminectomy C3-6, arthrodesis C3-7 Transfer to SNF today DS: Summary Hospital Course Hospital Course: Ms. Jordan is an 83-year-old female with history of cervical myelopathy who presented for surgery on May 17 for surgery; please see the operative note for more details. She was transferred to the floor post-operatively. She worked with therapy starting on POD1. Her hemovac drain was removed on POD1. She was tolerating oral intake, and her pain was adequately controlled. She ambulated with physical therapy who recommended discharge to SNF for rehab. She was accepted for transfer on POD3. Her strength and sensation in her hands improved quickly after surgery. Time Spent with Patient Time attestation: Total time spent providing and/or coordinating discharge services: Exam Narrative: 4/5 intrinsics bilaterallyNear full orthopedic technician strength bilaterally, slightly weaker on left Otherwise full strength Sensation intact to light touch Incision c/d/i with sutures intact Discharge Plan Discharge Attending physician on discharge: Theresa Bravo Discharging Clinician: Theresa Bravo Patient Disposition: SNF Activity: may shower and other - see discharge instructions Diet: as tolerated Wound Care Instructions: follow printed instructions and incision open to air Discharge Instructions: Discharge Instructions Procedure: Posterior cervical decompression and fusion Your doctor removed bone and ligament to decompress your spinal cord and nerve roots, and then placed hardware to stabilize the spine. Here are some instructions to follow upon discharge from the hospital to help in your recovery. Activity: Unless released by your doctor, you should not return to work. You should rest at home and let your body heal. Taking short walks is encouraged, but avoid strenuous exercise. Do not jog, run, lift weights, bicycle, or participate in other exercises unless specifically allowed by your doctor. Most importantly, avoid lifting objects heavier than a telephone book or a carton of milk as this places a strain on your neck. If possible, avoid household activities that involve lifting such as laundry, grocery shopping, or childcare. Try to arrange for help from friends and family for these activities while your neck heals. You should not drive for 7-10 days, until you are both off of narcotics and your neck has loosened up enough to safely check your blind spots. You may shower. After showering, lightly dab your wound dry. Do not take baths or sit in a hot tub or pool until approved by your doctor. You may get your incision wet with soap and water, but do not submerge the incision under water. DO NOT SMOKE TOBACCO. Smoking has been proven to interfere with the normal healing of the bones in your neck. Smoking will dramatically reduce the success rate of your surgery. Diet: You can return to your usual diet, unless instructed otherwise by your doctor. Medications: You should resume taking all of your normal medications unless instructed otherwise by your doctor. You may take Tylenol 1000mg every 6 hours as needed for pain. If your pain is still uncontrolled after Tylenol, then take oxycodone. You may also take flexeril for neck pain and muscle spasms every 8 hours. However, you should not take anti-inflammatory medicat
[2023-05-20 09:57] LABS: SARS-CoV-2 RNA PCR Negative (Negative)
--- NOTE | 2023-05-20 10:56 | PCOTNOTE ---
Attempted to see pt for Occupational Therapy treatment. Pt declined to participate in self care tasks at this time due to wanting to take a nap. Will attempt at a later time.
[2023-05-20] MEDS: ACETAMINOPHEN 500 MG TABLET 1000 MG PO (11:02)
== END 2023-05-20 13:10 | DRG 472 ==
LOC: ANH2MED 12:04
PROVIDERS: Admitting Provider Neurological Surgery; PCP Family Medicine; Visit Provider Neurological Surgery
PROC: 0RG2071 Fusion of 2 or more Cervical Vertebral Joints with Autologous Tissue Substitute, Posterior Approach, Posterior Column, Open Approach (ICD-10-PCS; principal; 2023-05-17 07:30)
DX: M48.02 Spinal stenosis, cervical region (principal); M50.021 Cervical disc disorder at C4-C5 level with myelopathy; M50.022 Cervical disc disorder at C5-C6 level with myelopathy; M50.023 Cervical disc disorder at C6-C7 level with myelopathy; M43.12 Spondylolisthesis, cervical region; I10 Essential (primary) hypertension; F41.9 Anxiety disorder, unspecified; E78.5 Hyperlipidemia, unspecified; M19.90 Unspecified osteoarthritis, unspecified site; Z20.822 Contact with and (suspected) exposure to COVID-19
CPT/HCPCS: 36415; 81001; 82565; 85048; 86850; 86900; 86901; 87086; 87635; 97110; 97116; 97161; 97166; 97530; 97535; 99199; A9270; C1713; J0330; J0690; J1100; J1170; J1650; J2270; J2371; J2405; J2704; J3010; J7030; J7120

== ENCOUNTER 2023-09-05 10:08 | Outpatient (CLI) | payer OTHER, SELFPAY ==
--- NOTE | ~2023-09-05 | XR_ITS ---
Cervical Spine: AP, lateral, open-mouth views Clinical History: Pain Findings: There is posterior fusion hardware extending from C3 through C7, bilateral rods and transpe dicular screws present. There is mild reversal normal cervical lordosis. There is severe degenerative tearing at C4-C5, C5-C6, and C6-C7. No prevertebral soft tissue swelling. Impression: Posterior fusion from C3 through C7, as detailed above. Advanced degenerative disc narrowing from C4 through C7. Reviewed, dictated and finalized at location . 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 Advanced degenerative disc narrowing from C4 through C7.
== END 2023-09-05 10:09 | disposition home or self-care (01) ==
LOC: ANHIMG 10:17
PROVIDERS: PCP Family Medicine; Visit Provider Neurological Surgery
DX: M43.22 Fusion of spine, cervical region (principal); M50.321 Other cervical disc degeneration at C4-C5 level; M50.322 Other cervical disc degeneration at C5-C6 level; M50.323 Other cervical disc degeneration at C6-C7 level; Z98.1 Arthrodesis status
CPT/HCPCS: 72040